=== PATIENT | female | born 1985 | race African-American/Black ===

== ENCOUNTER 2020-01-21 19:43 | Emergency (ER) | payer OTHER ==
[~2020-01-21] VITALS: Ht 170.2 cm; Wt 74.8 kg
[2020-01-21 20:00] VITALS: BP 119/78
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
[2020-01-21] MEDS ORDERED: Omnipaque-300 100ml vial INJ PRN (20:15)
[2020-01-21] MEDS ORDERED: Ketorolac 30mg Inj IV ONE (20:15)
[2020-01-21 20:37] LABS: BILIRUBIN, URINE NEGATIVE (NEGATIVE); COLOR,URINE PALE YELLOW; GLUCOSE, URINE (UA) NEGATIVE (NEGATIVE); KETONES,URINE NEGATIVE (NEGATIVE); LEUKOCYTE ESTERASE ,URINE 3+ (NEGATIVE); NITRITE,URINE NEGATIVE (NEGATIVE); PH,URINE 7 (4.5-8.0); PROTEIN,URINE NEGATIVE (NEGATIVE); UROBILINOGEN,URINE NORMAL MG/DL (0.0-1.0)
[2020-01-21 20:43] LABS: APPEARANCE,URINE SLIGHTLY CLOUDY
[2020-01-21 20:47] LABS: BASOPHILS % (AUTO) 1.5 % (0.0-2.0); EOSINOPHILS % (AUTO) 4.8 % (0.0-3.0); HEMATOCRIT 38.9 % (37.0-47.0); HEMOGLOBIN 12.2 G/DL (12.0-16.0); LYMPHOCYTES % (AUTO) 34.6 % (20.0-45.0); MEAN CORPUSCULAR VOLUME 86 FL (80-99); NEUTROPHILS % (AUTO) 53.1 % (45.0-75.0); PLATELET COUNT 396 K/UL (150-450); RED BLOOD COUNT 4.53 M/UL (4.20-5.40); RED CELL DISTRIBUTION WIDTH 14.2 % (11.6-14.8); WHITE BLOOD COUNT 6.4 K/UL (4.8-10.8)
[2020-01-21 20:48] LABS: ANION GAP 8 mmol/L (5-15); BLOOD UREA NITROGEN 9 mg/dL (7-18); CALCIUM 9.3 MG/DL (8.5-10.1); CARBON DIOXIDE 32 MMOL/L (21-32); CHLORIDE 102 MMOL/L (98-107); CREATININE 0.7 MG/DL (0.55-1.30); POTASSIUM 3.8 MMOL/L (3.5-5.1); SODIUM 141 MMOL/L (136-145)
[2020-01-21 20:52] LABS: ALANINE AMINOTRANSFERASE 19 U/L (12-78); ALBUMIN 4.2 G/DL (3.4-5.0); ALKALINE PHOSPHATASE 78 U/L (46-116); ASPARTATE AMINO TRANSFERASE 19 U/L (15-37); BILIRUBIN,TOTAL 0.2 MG/DL (0.2-1.0)
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
[2020-01-21] MEDS ORDERED: ROBAXIN-500MG ORAL (22:05)
[2020-01-21] MEDS ORDERED: IBUPROFEN600 MG ORAL (22:05)
[2020-01-21] MEDS ORDERED: LIDODERM700 M1 TOPIC (22:05)
[2020-01-21] MEDS ORDERED: NITROFURANTOIN100 M2 ORAL (22:05)
[2020-01-21 22:20] VITALS: BP 114/80
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
== END 2020-01-21 22:20 | disposition home or self-care (01) ==
LOC: EMR 20:08
DX: S14.109A Unspecified injury at unspecified level of cervical spinal cord, initial encounter (principal); Y04.2XXA Assault by strike against or bumped into by another person, initial encounter; Y92.9 Unspecified place or not applicable; N39.0 Urinary tract infection, site not specified
CPT/HCPCS: 36415; 70491; 80053; 81003; 81025; 85025; 87086; 96374; J1885; Q9967; Z7502; 99284